=== PATIENT | male | born 1950 | race Caucasian/White ===

== ENCOUNTER 2017-05-02 21:11 | Observation (INO) | payer MEDICARE ==
[2017-05-02 21:58] LABS: #Basophils 0.1 thou/uL (0.0-0.2); #Eosinphils 0.1 thou/uL (0.0-0.7); #Lymphocytes 3.5 thou/uL (1.20-3.40); #Neutrophils 9.1 thou/uL (1.40-6.50); %Basophils 0.4 % (0.0-1.0); %Eosinophils 0.8 % (0.0-10.0); %Lymphocytes 25.2 % (21.0-51.0); %Monocytes 7.3 % (0.0-10.0); Hematocrit 40.8 % (42.0-52.0); Mean Platelet Volume 6.6 fL (7.4-10.4); Red Blood Cell (RBC) Count 4.33 mill/uL (4.70-6.10); White Blood Cell (WBC) Count 13.7 thou/uL (4.8-10.8)
[2017-05-02 22:37] LABS: Prothrombin Time 13.7 SEC (12.0-14.7)
[2017-05-02 22:39] LABS: ALT (SGPT) 23 U/L (8-55); AST (SGOT) 11 U/L (5-34); Alkaline Phosphatase 60 U/L (40-150); Anion Gap 13 mmol/L (10-20); BUN (Urea Nitrogen) 40 mg/dL (8.4-25.7); Bilirubin, Total 0.6 mg/dL (0.2-1.2); Calc. Creatinine Clearance 0 mL/min (70-130); Calcium 9.5 mg/dL (7.8-10.44); Carbon Dioxide 20 mmol/L (23-31); Chloride 109 mmol/L (98-107); Estimated GFR-MDRD Greater than 90; Globulin 2.4 g/dL (2.4-3.5); Protein, Total 6.4 g/dL (5.8-8.1)
[2017-05-03] MEDS ORDERED: Ondansetron HCl/PF 4 MG/2 ML Vial SLOW IVP PRN (00:21)
[2017-05-03] MEDS ORDERED: Enalaprilat Dihydrate 1.25 MG/ML VIAL SLOW IVP PRN (00:21)
[2017-05-03] MEDS ORDERED: Fentanyl 100 MCG/2 ML VIAL SLOW IVP PRN (00:22)
[2017-05-03] MEDS ORDERED: Pantoprazole 40 MG VIAL IVP SCH (00:30)
[2017-05-03] MEDS: Dextrose 5 % And 0.9 % NaCl 1,000 ML IV SCH ×3 (01:17→17:22)
[2017-05-03 01:57] VITALS: BMI 25.9
[2017-05-03 05:50] LABS: #Basophils 0.1 thou/uL (0.0-0.2); #Eosinphils 0.1 thou/uL (0.0-0.7); #Monocytes 0.7 thou/uL (0.11-0.59); %Basophils 0.5 % (0.0-1.0); %Eosinophils 1.2 % (0.0-10.0); %Lymphocytes 27.1 % (21.0-51.0); %Monocytes 6.6 % (0.0-10.0); Hematocrit 36.2 % (42.0-52.0); Mean Platelet Volume 6.9 fL (7.4-10.4); Red Blood Cell (RBC) Count 3.86 mill/uL (4.70-6.10); White Blood Cell (WBC) Count 10.9 thou/uL (4.8-10.8)
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
[2017-05-03 06:10] LABS: Anion Gap 11 mmol/L (10-20); BUN (Urea Nitrogen) 33 mg/dL (8.4-25.7); Calc. Creatinine Clearance 122 mL/min (70-130); Calcium 8.6 mg/dL (7.8-10.44); Carbon Dioxide 21 mmol/L (23-31); Chloride 110 mmol/L (98-107); Estimated GFR-MDRD Greater than 90
--- NOTE | 2017-05-03 08:21 | PRG ---
DATE OF SERVICE: 05/03/2017 The patient still admits to having some blood in his bowel movement. He has no appetite. He feels b loated. PHYSICAL EXAMINATION: GENERAL: He is awake, alert and oriented to person, place and time. VITAL SIGNS: Blood pressure 120/76, pulse 85, respirations 18, he is afebrile. NECK: Supple with no increased JVP or carotid bruit. Carotid had good upstroke with no thyromegaly. COR: Regular rate and rhythm. CHEST: Symmetrical. Clear to auscultation and percussion. ABDOMEN: Soft, distended with hypoactive bowel sounds. He had no abdominal tenderness or abdominal bruit. EXTREMITIES: No edema or cyanosis. He had palpable pedal pulses. SKIN: There is no evidence of ulcers, lesion or rash. NEUROLOGIC: He is awake, alert and oriented to person, place, and time. LABORATORY DATA: CBC did not show a drop. His CMP showed a glucose of 117. His BUN is 33, creatini ne of 0.72. ASSESSMENT: 1. Gastrointestinal bleed. 2. Hypertension. 3. History of migraine headaches. 4. History of arteriovenous malformation with spinal hemiplegia at L5. PLAN: We will keep the patient on IV fluids. We will also keep him n.p.o. GI has already been cons ulted, so we will await further plan and will follow up with lab in the morning. The patient verbali zed understanding and all questions answered to his satisfaction.
[2017-05-03] MEDS: Pantoprazole 40 MG VIAL IVP SCH ×2 (09:06→20:55)
[2017-05-03] MEDS ORDERED: GoLYTELY 4,000 ml Bottle PO SCH (12:45)
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
[2017-05-03] MEDS ORDERED: Zolpidem Tartrate 5 MG TAB PO SCH (21:00)
[2017-05-04] MEDS: Dextrose 5 % And 0.9 % NaCl 1,000 ML IV SCH ×2 (00:28→09:40)
[2017-05-04 05:40] LABS: #Eosinphils 0.2 thou/uL (0.0-0.7); #Lymphocytes 1.8 thou/uL (1.20-3.40); #Monocytes 0.5 thou/uL (0.11-0.59); #Neutrophils 3.9 thou/uL (1.40-6.50); %Basophils 0.5 % (0.0-1.0); %Eosinophils 3.5 % (0.0-10.0); %Lymphocytes 28.6 % (21.0-51.0); %Monocytes 7.5 % (0.0-10.0); Hematocrit 31.1 % (42.0-52.0); Mean Platelet Volume 6.7 fL (7.4-10.4); Red Blood Cell (RBC) Count 3.28 mill/uL (4.70-6.10); White Blood Cell (WBC) Count 6.5 thou/uL (4.8-10.8)
[2017-05-04] MEDS ORDERED: Promethazine HCl 25 MG/ML VIAL SLOW IVP PRN (09:06)
[2017-05-04] MEDS ORDERED: Ondansetron HCl/PF 4 MG/2 ML Vial IVP PRN (09:06)
[2017-05-04] MEDS ORDERED: Promethazine HCl 25 MG/ML VIAL IM PRN (09:06)
[2017-05-04] MEDS ORDERED: Propofol 200 MG/20 ML VIAL ONE (09:34)
[2017-05-04] MEDS ORDERED: Lidocaine 1% PF 5 ML VIAL ONE (09:34)
[2017-05-04 12:15] VITALS: BP 148/84; TEMP 97.9
--- NOTE | 2017-05-04 13:47 | OP ---
DATE OF PROCEDURE: 05/04/2017 OPERATIVE PROCEDURE: Esophagogastroduodenoscopy and biopsy. PREOPERATIVE DIAGNOSES: Melena and positive history of bleeding ulcer. POSTOPERATIVE DIAGNOSES: 1. Normal esophageal mucosa. 2. Small hiatus hernia. 3. Erosion at the incisura angularis and also gastric antrum. 4. The bulbar mucosa was erythematous and nodular with an ulceration measuring approximately 1 cm. No active bleeding seen at the time of endoscopy. PROCEDURE IN DETAIL: The patient was placed on his left lateral position and was given sedation by [facility] Anesthesia Department. A Pentax video gastroscope under direct vision was passed down the orophar ynx, past the GE junction, into the stomach and subsequent descending duodenum. The esophageal mucos a appears normal throughout the esophagus. The GE junction, no pathology seen. There was small hiat us hernia. The fundus, cardia and gastric body, no pathology seen. Over the incisura angularis, the patient was found to have a small erosion. Also, another erosion seen over the gastric antrum. The duodenal bulb showed ulceration measuring approximately 1 cm. The base of the ulceration appears cl janes. He also has mucosa that is somewhat nodular and erythematous. The descending duodenum, no path ology seen. Biopsy obtained from the gastric antrum and gastric body. The stomach was decompressed and the scope removed. RECOMMENDATIONS: 1. No aspirin or any NSAID medication. 2. Protonix 40 mg once a day. 3. Await gastric biopsy and decide whether he needs to be treated for Helicobacter.
--- NOTE | 2017-05-04 13:54 | OP ---
DATE OF SURGERY: 05/04/2017 SURGEON: Philomena Barrios M.D. OPERATIVE PROCEDURE: Colonoscopy. PREOPERATIVE DIAGNOSES: Gastrointestinal bleeding, colon cancer. POSTOPERATIVE DIAGNOSES: 1. Occasional sigmoid diverticular disease. 2. Otherwise, normal exam. PROCEDURE IN DETAIL: The patient was placed on his left lateral position and was given sedation by A nesthesia Department. A rectal exam was done before the scope was advanced into the rectum. No lesi ons were felt on rectal exam. A Pentax video colonoscope was introduced into the rectum and advanced all the way to the cecum. The appendical opening, ileocecal valve, and cecum, no pathology seen. T he ascending colon, hepatic flexure, transverse colon, splenic flexure, descending colon, sigmoid col on, no pathology seen. The sigmoid colon was very spastic. It was very difficult to assess the sigm oid colon. The scope was advanced back one more time to the descending colon was carefully withdrawn . Again, it was very difficult to insufflate and keep the lumen open. He does have occasional diver ticular disease. Retroflexion of the scope in the rectum showed no lesions. OVERALL IMPRESSION: Gastrointestinal bleeding, most likely from a duodenal ulcer. The patient does take Aleve at least 3-4 times a week. RECOMMENDATIONS: 1. Pantoprazole. 2. The patient was advised to not take any Aleve or any NSAID medication. He will follow up with Dr Altaf Roa as an outpatient.
== END 2017-05-04 14:11 | disposition home or self-care (01) ==
LOC: ERS 21:11 → SJJU 23:32
PROVIDERS: ADMIT Specialist; ATTEND Specialist
PROC: 0DB68ZX Excision of Stomach, Via Natural or Artificial Opening Endoscopic, Diagnostic (ICD-10-PCS; principal; 2017-05-04)
PROC: 0DJD8ZZ Inspection of Lower Intestinal Tract, Via Natural or Artificial Opening Endoscopic (ICD-10-PCS; 2017-05-04)
DX: K29.50 Unspecified chronic gastritis without bleeding (principal); K57.30 Diverticulosis of large intestine without perforation or abscess without bleeding; K44.9 Diaphragmatic hernia without obstruction or gangrene; I10 Essential (primary) hypertension; G43.909 Migraine, unspecified, not intractable, without status migrainosus; M81.0 Age-related osteoporosis without current pathological fracture; E78.5 Hyperlipidemia, unspecified; Z91.040 Latex allergy status; Z79.899 Other long term (current) drug therapy; Z90.49 Acquired absence of other specified parts of digestive tract; Z96.641 Presence of right artificial hip joint; Z98.890 Other specified postprocedural states; Z82.3 Family history of stroke
CPT/HCPCS: 43239; 45378; 80048; 82274; 83036; 85025 ×2; 85610; 85730; 86850 ×2; 86900 ×2; 86901 ×2; 86920; 88305; 88312; 96361; 96374; 96376; 99285; G0378; 36415; 80053; 84443; A4216; C9113; J2001; J2704

== ENCOUNTER 2018-06-19 09:40 | Outpatient (CLI) | payer MEDICARE ==
--- NOTE | 2018-06-19 12:51 | BD ---
BONE DENSITOMETRY USING DEXA: HISTORY: Postmenopausal screening for osteoporosis. FINDINGS: Lumbar Spine: BMD (g/cm2) L1 0.890 T-Score: -1.7 Z-Score: -1.0 L2 0.968 T-Score: -1.1 Z-Score: -0.3 L3 1.043 T-Score: -0.5 Z-Score: 0.3 L4 1.110 T-Score: 0.2 Z-Score: 1.0 L1-L4 1.005 T-Score: -0.8 Z-Score: 0.0 Femoral Neck: 0.476 T-Score: -3.3 Z-Score: -2.3 Total Femur: 0.665 T-Score: -2.4 Z-Score: -1.9 Impression: Osteoporosis. POS: [facility]
== END 2018-06-19 09:41 | disposition home or self-care (01) ==
LOC: BICMAMMO 09:40
PROVIDERS: ATTEND Specialist
DX: M81.0 Age-related osteoporosis without current pathological fracture (principal); M85.88 Other specified disorders of bone density and structure, other site
CPT/HCPCS: 77080

== ENCOUNTER 2020-07-31 13:49 | Emergency (ER) | payer MEDICARE ==
[~2020-07-31 13:49] MED LIST: Iopamidol-370 76% 500 ML 1 ML ONE
[2020-07-31 15:17] LABS: #Eosinphils 0.2 thou/uL (0.0-0.7); #Lymphocytes 1.8 thou/uL (1.20-3.40); #Monocytes 0.5 thou/uL (0.11-0.59); #Neutrophils 6.2 thou/uL (1.40-6.50); %Basophils 0.5 % (0.0-1.0); %Eosinophils 2.5 % (0.0-10.0); %Lymphocytes 21.1 % (21.0-51.0); %Monocytes 5.3 % (0.0-10.0); %Neutrophils 70.7 % (42.0-75.0); Hemoglobin 15.7 g/dL (14.0-18.0); Mean Corpuscular HGB CONC 35.2 g/dL (32.0-36.0); Mean Corpuscular Hemoglobin 32.6 pg (27.0-31.0); Mean Corpuscular Volume 92.5 fL (78.0-98.0); Platelet Count 339 thou/uL (130-400); RBC Distribution Width 12.3 % (11.5-14.5); Red Blood Cell (RBC) Count 4.82 mill/uL (4.70-6.10); White Blood Cell (WBC) Count 8.7 thou/uL (4.8-10.8)
[2020-07-31 15:39] LABS: ALT (SGPT) 20 U/L (8-55); AST (SGOT) 15 U/L (5-34); Albumin 4.1 g/dL (3.4-4.8); Alkaline Phosphatase 89 U/L (40-110); Anion Gap 14 mmol/L (10-20); BUN (Urea Nitrogen) 18 mg/dL (8.4-25.7); Bilirubin, Total 0.6 mg/dL (0.2-1.2); Calc. Creatinine Clearance 0 mL/min (70-130); Calcium 9.4 mg/dL (7.8-10.44); Carbon Dioxide 22 mmol/L (23-31); Chloride 109 mmol/L (98-107); Globulin 2.8 g/dL (2.4-3.5); Glucose 94 mg/dL (80-115); Potassium 4.2 mmol/L (3.5-5.1); Protein, Total 6.9 g/dL (5.8-8.1); Sodium 141 mmol/L (136-145)
== END 2020-07-31 17:59 | disposition home or self-care (01) ==
LOC: ERS 13:49
DX: M54.5 Low back pain (principal); G89.29 Other chronic pain; I10 Essential (primary) hypertension
CPT/HCPCS: 36415; 71275; 74174; 80053; 84484; 85025; Q9967

== ENCOUNTER 2021-05-31 09:23 | Outpatient (CLI) | payer MEDICARE | END 2021-05-31 09:24 | disposition home or self-care (01) | LOC: BICMRI 09:23 | PROVIDERS: ATTEND Specialist | DX: G83.4 Cauda equina syndrome (principal); M47.816 Spondylosis without myelopathy or radiculopathy, lumbar region; Z98.890 Other specified postprocedural states | CPT/HCPCS: 72148 ==